=== PATIENT | male | born 1990 | race Hispanic/Latino ===

== ENCOUNTER 2021-03-18 18:28 | Emergency (ER) | payer OTHER ==
[~2021-03-18] VITALS: Ht 172.7 cm; Wt 91.6 kg
[2021-03-18] MEDS ORDERED: TETANUS/DIPHTHERIA TOXOID [ADULT] 0.5 ML VIAL IM ONE (19:00)
[2021-03-18 19:26] VITALS: BP 117/72
[2021-03-18] MEDS ORDERED: IBUP-2076 PO (20:16)
== END 2021-03-18 20:32 | disposition home or self-care (01) ==
LOC: EEVIPCON 18:28 → EDH 18:28
DX: S66.912A Strain of unspecified muscle, fascia and tendon at wrist and hand level, left hand, initial encounter (principal); S66.911A Strain of unspecified muscle, fascia and tendon at wrist and hand level, right hand, initial encounter; S80.01XA Contusion of right knee, initial encounter; S00.01XA Abrasion of scalp, initial encounter; Y08.89XA Assault by other specified means, initial encounter; Y93.89 Activity, other specified; Y92.89 Other specified places as the place of occurrence of the external cause; Y99.8 Other external cause status
CPT/HCPCS: 70450; 73110; 73562; 90471; 90714

== ENCOUNTER 2021-03-21 19:10 | Emergency (ER) | payer OTHER ==
[~2021-03-21] VITALS: Ht 172.7 cm; Wt 91.6 kg
[~2021-03-21 19:10] MED LIST: IBUP-2076 PO
[2021-03-21 19:13] VITALS: BP 130/83
== END 2021-03-21 20:15 | disposition home or self-care (01) ==
LOC: EDH 19:10
DX: R76.11 Nonspecific reaction to tuberculin skin test without active tuberculosis (principal); Z79.1 Long term (current) use of non-steroidal anti-inflammatories (NSAID)
CPT/HCPCS: 71046

== ENCOUNTER 2021-12-12 11:05 | Emergency (ER) | payer OTHER ==
[~2021-12-12] VITALS: Ht 175.3 cm; Wt 95.3 kg
[2021-12-12 11:51] LABS: BASOPHILS % (AUTO) 0.5 % (0.0-5.0); EOSINOPHILS % (AUTO) 0.8 % (0.0-8.0); HEMATOCRIT 48.1 % (42-54); LYMPHOCYTES % (AUTO) 16.7 % (21.0-51.0); MEAN CORPUSCULAR HEMOGLOBIN 22.4 pg (27.0-33.0); MEAN CORPUSCULAR HGB CONC 30.1 g/dL (32.0-36.0); MEAN CORPUSCULAR VOLUME 74.5 fL (79-99); MONOCYTES % (AUTO) 7.6 % (3.0-13.0); NEUTROPHILS % (AUTO) 73.8 % (40.0-77.0); PLATELET COUNT (AUTO) 313 K/uL (130-400); RED BLOOD CELL COUNT(AUTO) 6.46 MIL/uL (4.50-6.20); RED CELL DISTRIBUTION WIDTH 17.4 % (11.0-15.5); WHITE BLOOD COUNT (AUTO) 8.6 K/uL (4.8-10.8)
[2021-12-12 12:00] VITALS: BP 123/79
[2021-12-12 12:00] LABS: CREATININE 0.9 mg/dL (0.5-1.5); POTASSIUM 4.1 mmol/L (3.5-5.1)
[2021-12-12 12:05] LABS: ALBUMIN 3.4 g/dL (3.5-5.0); BILIRUBIN,TOTAL 0.4 mg/dL (0.2-1.0); TOTAL PROTEIN, SERUM 6.6 g/dL (6.0-8.3)
[2021-12-12] MEDS ORDERED: DiphenhydrAMINE HCL 50 MG/ML VIAL IV ONE (12:30)
[2021-12-12] MEDS ORDERED: KETOROLAC 30MG VIAL (30MG/ML) IVP ONE (12:30)
[2021-12-12] MEDS ORDERED: 0.9%NACL 1000ML 1,000 ML IV ONE (12:30)
[2021-12-12] MEDS ORDERED: PROCHLORPERAZINE EDISYLATE 5 MG/ML 2 ML VIAL IVP ONE (12:30)
[2021-12-12 12:36] LABS: APPEARANCE,URINE Clear (CLEAR); BILIRUBIN,URINE Negative (NEGATIVE); COLOR,URINE Yellow (YELLOW); GLUCOSE, URINE (UA) Negative (NEGATIVE); KETONES,URINE Negative (NEGATIVE); LEUKOCYTE ESTERASE ,URINE Negative (NEGATIVE); NITRATE,URINE Negative (NEGATIVE); OCCULT BLOOD,URINE Negative (NEGATIVE); PH,URINE 5.5 (5.0-8.0); PROTEIN,URINE Negative (NEGATIVE)
[2021-12-12] MEDS ORDERED: PROCHLORPERAZINE 10MG/2ML INJ ONE (12:52)
[2021-12-12] MEDS ORDERED: IBUP-2070 PO (13:22)
[2021-12-12] MEDS ORDERED: ONDA4TAB10 PO (13:22)
== END 2021-12-12 13:09 | disposition home or self-care (01) ==
LOC: EDH 11:05
DX: R51.9 Headache, unspecified (principal); Z20.822 Contact with and (suspected) exposure to COVID-19
CPT/HCPCS: 36415; 80053; 81003; 85025; 87635; 87804 ×2; 87880; 96374; 96375; 99284; J0780; J1200; J1885; J7030

== ENCOUNTER 2022-02-01 18:58 | Emergency (ER) | payer OTHER ==
[~2022-02-01] VITALS: Ht 175.3 cm; Wt 98.4 kg
[~2022-02-01 18:58] MED LIST changes: +IBUP-2070 PO; +ONDA4TAB10 PO
[2022-02-01 19:02] VITALS: BP 123/74
[2022-02-01] MEDS ORDERED: AMOX1TAB16 PO (19:43)
[2022-02-01] MEDS ORDERED: ACET-2079 PO (19:43)
[2022-02-01] MEDS ORDERED: KETOROLAC 30MG VIAL (30MG/ML) IM ONE (20:00)
== END 2022-02-01 20:02 | disposition home or self-care (01) ==
LOC: EDH 18:58
DX: K08.89 Other specified disorders of teeth and supporting structures (principal); K21.9 Gastro-esophageal reflux disease without esophagitis; Z79.899 Other long term (current) drug therapy
CPT/HCPCS: 99283; 96372; J1885

== ENCOUNTER 2022-09-30 00:30 | Emergency (ER) | payer BC, OTHER ==
[~2022-09-30] VITALS: Ht 175.3 cm; Wt 104.3 kg
[~2022-09-30 00:30] MED LIST changes: +ACET-2079 PO; +AMOX1TAB16 PO
[2022-09-30 00:32] VITALS: BP 120/89
[2022-09-30] MEDS ORDERED: ACETAMINOPHEN 500 MG TABLET PO ONE (01:30)
[2022-09-30] MEDS ORDERED: IBUPROFEN 600 MG TABLET PO ONE (01:30)
[2022-09-30] MEDS ORDERED: IBUP-2070 PO (01:38)
[2022-09-30] MEDS ORDERED: OSEL75 PO (01:38)
[2022-09-30] MEDS ORDERED: D-ME118S47 PO (01:38)
== END 2022-09-30 01:49 | disposition home or self-care (01) ==
LOC: EDH 00:30
DX: J10.1 Influenza due to other identified influenza virus with other respiratory manifestations (principal); R50.9 Fever, unspecified; K21.9 Gastro-esophageal reflux disease without esophagitis; Z20.822 Contact with and (suspected) exposure to COVID-19; Z79.899 Other long term (current) drug therapy
CPT/HCPCS: 99283; 87635; 87804 ×2; C9803

== ENCOUNTER 2023-09-27 15:23 | Emergency (ER) | payer BC ==
[~2023-09-27] VITALS: Ht 175.3 cm; Wt 105.7 kg
[~2023-09-27 15:23] MED LIST changes: +D-ME118S47 PO; +OSEL75 PO
[2023-09-27] MEDS ORDERED: CYCL10TA16 PO (15:56)
[2023-09-27] MEDS ORDERED: IBUP-2070 PO (15:56)
[2023-09-27] MEDS: ORPHENADRINE CITRATE 30 MG/ML ML IM ONE (16:16)
[2023-09-27 16:20] VITALS: BP 124/81; PULSE 82; RESP 18; O2SAT 97
== END 2023-09-27 16:36 | disposition home or self-care (01) ==
LOC: EDH 15:23
DX: S39.011A Strain of muscle, fascia and tendon of abdomen, initial encounter (principal); X58.XXXA Exposure to other specified factors, initial encounter; Y93.89 Activity, other specified; Y92.89 Other specified places as the place of occurrence of the external cause; Y99.8 Other external cause status
CPT/HCPCS: 96372; J2360

== ENCOUNTER 2023-10-14 20:37 | Emergency (ER) | payer BC ==
[~2023-10-14] VITALS: Ht 172.7 cm; Wt 104.3 kg
[~2023-10-14 20:37] MED LIST changes: +BROM118S48 PO; +CYCL10TA16 PO; -D-ME118S47 PO
[2023-10-14 22:14] LABS: RAPID GROUP A STREP positive (NEGATIVE)
[2023-10-14] MEDS: IBUPROFEN 800 MG TAB PO ONE (22:18)
[2023-10-14 22:20] LABS: SARS-CoV-2, RNA, NAAT NEGATIVE SARS CoV-2 (NEGATIVE)
[2023-10-14 22:21] LABS: INFLUENZA TYPE A Negative For Type A (NEGATIVE); INFLUENZA TYPE B Negative For Type B (NEGATIVE)
[2023-10-14] MEDS ORDERED: ALBUHFA IH (22:54)
[2023-10-14] MEDS ORDERED: AZIT500T2 PO (22:54)
[2023-10-14] MEDS ORDERED: BENZ-39 PO (22:54)
[2023-10-14] MEDS: CEFTRIAXONE 1G VIAL IM ONE (23:09)
[2023-10-14 23:28] VITALS: BP 128/70; PULSE 72; RESP 18; O2SAT 100
== END 2023-10-14 23:32 | disposition home or self-care (01) ==
LOC: EDH 20:37
DX: J03.00 Acute streptococcal tonsillitis, unspecified (principal); J20.8 Acute bronchitis due to other specified organisms; R05.9 Cough, unspecified; R50.9 Fever, unspecified; K21.9 Gastro-esophageal reflux disease without esophagitis; Z20.822 Contact with and (suspected) exposure to COVID-19
CPT/HCPCS: 99284; 71045; 87635; 87880; 87804 ×2; 96372; J0696

== ENCOUNTER 2024-01-17 14:33 | Emergency (ER) | payer BC ==
[~2024-01-17] VITALS: Ht 172.7 cm; Wt 104.3 kg
[~2024-01-17 14:33] MED LIST changes: +ALBUHFA IH; +AZIT500T2 PO; +BENZ-39 PO; +ONDA-243 PO; -ONDA4TAB10 PO
[2024-01-17 15:51] LABS: INFLUENZA TYPE A Negative For Type A (NEGATIVE); INFLUENZA TYPE B Negative For Type B (NEGATIVE)
[2024-01-17 16:02] LABS: RAPID GROUP A STREP positive (NEGATIVE); SARS-CoV-2, RNA, NAAT POSITIVE SARS CoV-2 (NEGATIVE)
[2024-01-17 16:54] VITALS: TEMP 101.7
[2024-01-17] MEDS: IBUPROFEN 800 MG TAB PO ONE (16:54)
[2024-01-17] MEDS ORDERED: IBUP-2077 PO (17:40)
[2024-01-17] MEDS ORDERED: AMOX1TAB16 PO (17:40)
[2024-01-17] MEDS: AMOX/CLAV 875/125MG TAB PO ONE (18:30)
[2024-01-17 18:37] VITALS: BP 123/86; PULSE 89; RESP 20; O2SAT 99
== END 2024-01-17 18:38 | disposition home or self-care (01) ==
LOC: EDH 14:33
DX: U07.1 COVID-19 (principal); J03.00 Acute streptococcal tonsillitis, unspecified; K21.9 Gastro-esophageal reflux disease without esophagitis; Z79.899 Other long term (current) drug therapy
CPT/HCPCS: 87635; 87804; 87880